=== PATIENT | female | born 1990 | race Caucasian/White ===

== ENCOUNTER → 2023-02-23 | Emergency (ER) | payer OTHER ==
[~2023-02-23] VITALS: Ht 160 cm; Wt 105.2 kg
[~2023-02-23] MED LIST: DICLOFENAC SODI75 MG PO
== END | disposition home or self-care (01) ==
LOC: ER 15:53
DX: N92.3 Ovulation bleeding (principal); N93.8 Other specified abnormal uterine and vaginal bleeding